=== PATIENT | female | born 1975 | race Caucasian/White ===

== ENCOUNTER 2017-06-16 20:18 | Inpatient (IN) | payer BC ==
[~2017-06-16] VITALS: Ht 167.6 cm; Wt 59.0 kg
[2017-06-16] MEDS ORDERED: MORPHINE SULFATE INJ 4 MG/ML DISP.SYRIN ONE ×2 (20:24→21:39)
[2017-06-16] MEDS ORDERED: ONDANSETRON HCL/PF 4 MG/2 ML VIAL ONE (20:24)
[2017-06-16] MEDS ORDERED: IV NS 0.9% 1,000 ML BAG IV ONE (20:30)
[2017-06-16] MEDS ORDERED: MORPHINE SULFATE INJ 2 MG/ML DISP.SYRIN IV ONE ×2 (20:30→22:00)
[2017-06-16] MEDS ORDERED: ONDANSETRON HCL/PF 4 MG/2 ML VIAL IVP ONE (20:30)
--- NOTE | 2017-06-16 20:30 | NUR ---
PT BIBA#99, PT STATES SHE STARTED HAVING OVERALL ABD PAIN X 1 HOUR PT DENIES ANY INJURY OR TRAUMA. PT AOX4 RR EVEN AND UNLABORED. NO SOB NOTED. NAD NOTED. PT GOWNED AND PLACED ON MONITOR. DR. STOCKTON AT BEDSIDE FOR EVAL.
[2017-06-16] MEDS ORDERED: HYDROMORPHONE 1 MG/1 ML DISP.SYRIN ONE ×3 (20:31→22:21)
[2017-06-16 20:32] LABS: BASOPHILS # (AUTO) 0.1 /CMM (0.0-0.2); BASOPHILS % (AUTO) 0.8 % (0.0-2.0); EOSINOPHILS # (AUTO) 0.5 /CMM (0.0-0.7); EOSINOPHILS % (AUTO) 4.8 % (0.0-6.0); HEMATOCRIT 35 % (33-45); HEMOGLOBIN 11.1 g/dL (11.5-14.8); LYMPHOCYTES # (AUTO) 3.8 /CMM (0.8-4.8); LYMPHOCYTES % (AUTO) 39.1 % (20.0-44.0); MEAN CORPUSCULAR HEMOGLOBIN 20 PG (26.0-33.0); MEAN CORPUSCULAR HGB CONC 32 g/dl (31.0-36.0); MEAN CORPUSCULAR VOLUME 63 fL (82-100); MONOCYTES # (AUTO) 0.8 /CMM (0.1-1.30); MONOCYTES % (AUTO) 8.5 % (2.0-12.0); NEUTROPHILS # (AUTO) 4.5 /CMM (1.8-8.9); NEUTROPHILS % (AUTO) 46.8 % (43.0-81.0); PLATELET COUNT (AUTO) 322 /CMM (150-450); RDW COEFFICIENT OF VARIATION 14.3 (11.5-15.0); RED BLOOD CELL COUNT(AUTO) 5.56 MIL/uL (4.0-5.2); WHITE BLOOD COUNT (AUTO) 9.7 K/uL (4.3-11.0)
[2017-06-16 20:42] LABS: CALCIUM, SERUM 8.4 mg/dL (8.5-10.1); CARBON DIOXIDE 18 mmol/L (21-32); CHLORIDE 101 mmol/L (98-107); CREATININE 0.9 mg/dL (0.6-1.3); GLUCOSE 160 mg/dL (74-106); POTASSIUM 2.9 mmol/L (3.5-5.1); SODIUM SERUM 134 mmol/L (136-145); UREA NITROGEN, BLOOD 9 mg/dL (7-18)
[2017-06-16 20:48] LABS: ALANINE AMINOTRANSFERASE 18 U/L (12-78); ALBUMIN 3.6 g/dL (3.4-5.0); ALKALINE PHOSPHATASE 41 U/L (46-116); ASPARTATE AMINOTRANSFERASE 18 U/L (15-37); BILIRUBIN,DIRECT 0.1 mg/dL (0.0-0.2); BILIRUBIN,TOTAL 0.6 mg/dL (0.2-1.0); LIPASE 154 U/L (73-393); TOTAL PROTEIN, SERUM 6.8 g/dL (6.4-8.2)
[2017-06-16 20:50] LABS: TROPONIN I < 0.017 ng/mL (0.00-0.056)
[2017-06-16 20:51] LABS: INR 0.94 (0.87-1.13); PROTHROMBIN TIME 9.8 SECS (9.5-12.7)
[2017-06-16] MEDS ORDERED: CT SWABBABLE VALVE TRANS SET 1 EA INFUS.SET MC ONE (20:52)
[2017-06-16] MEDS ORDERED: IV NS 0.9% 250 ML IV ONE (20:52)
[2017-06-16] MEDS ORDERED: IOHEXOL-300 100 ML VIAL IV ONE (20:52)
[2017-06-16] MEDS ORDERED: POTASSIUM CHLORIDE 10 MEQ/50 ML PREMIXED IVPB FOR PERIPHERAL LINE IV ONE (21:00)
[2017-06-16] MEDS ORDERED: HYDROMORPHONE INJ 2 MG/ML DISP.SYRIN IV ONE (21:00)
[2017-06-16] MEDS ORDERED: LORAZEPAM INJ 2 MG/ML VIAL IV ONE (21:00)
[2017-06-16] MEDS ORDERED: LORAZEPAM INJ 2 MG/ML VIAL ONE (21:03)
--- NOTE | 2017-06-16 21:08 | NUR ---
PT TO CT.
[2017-06-16] MEDS ORDERED: POTASSIUM CL. PREMIX PERIPHER. 50 ML ONE ×4 (21:13→22:26)
--- NOTE | 2017-06-16 21:23 | NUR ---
CALLED SHANKAR FOR READ ON CT ABDOMEN PELVIS
[2017-06-16 21:26] LABS: APPEARANCE,URINE Clear (CLEAR); BILIRUBIN,URINE Negative (NEGATIVE); BLOOD, URINE Negative Ery/uL (NEGATIVE); COLOR,URINE Yellow (YELLOW); KETONES,URINE 40 (NEGATIVE); LEUKOCYTE ESTERASE ,URINE Negative (NEGATIVE); NITRITE, URINE Negative (NEGATIVE); PROTEIN,URINE Negative (NEGATIVE); UGLUCOSE Negative (NEGATIVE); UROBILINOGEN,URINE 0.2 EU/dL (0.2)
--- NOTE | 2017-06-16 21:26 | NUR ---
KCL IVPB 10MEQ/50ML BAG #1 TRANSFUSING AT THIS TIME. PT TOLERATING WELL.
[2017-06-16] MEDS ORDERED: IV NS 0.9% 500 ML BAG IV ONE (21:30)
--- NOTE | 2017-06-16 21:31 | NUR ---
DR. STOCKTON AT BEDSIDE SPEAKING TO PT REGARDING POC
[2017-06-16 21:43] LABS: BACTERIA,URINE Few /HPF (None Seen); RBC,URINE 0-2 /HPF (0-2); SQUAMOUS EPITHELIAL CELL,UR Few /HPF (None Seen); URINE AMORPHOUS URATE Moderate /HPF (None Seen); WBC,URINE 0-2 /HPF (0-3)
--- NOTE | 2017-06-16 21:49 | NUR ---
DR. STOCKTON AT BEDSIDE SPEAKING TO PT AND FAMILY REGARDING POC AND RESULTS
--- NOTE | 2017-06-16 22:20 | NUR ---
KCL IVPB 10MEQ/50ML BAG #1 COMPLETED NO ASE NOTED. KCL IVPB 10MEQ/50ML BAG #2 TRANFUSING.
[2017-06-16] MEDS ORDERED: IV NS 0.9% 1,000 ML IV PRN (22:25)
[2017-06-16] MEDS ORDERED: HYDROMORPHONE 1 MG/1 ML DISP.SYRIN IV ONE (22:30)
[2017-06-16] MEDS ORDERED: HYDROCODONE/APAP 10/325MG 1 EA TABLET PO PRN (22:30)
[2017-06-16] MEDS ORDERED: ENOXAPARIN SODIUM 40 MG/0.4 ML DISP.SYRIN SQ SCH (22:30)
[2017-06-16] MEDS ORDERED: ONDANSETRON HCL/PF 4 MG/2 ML VIAL IVP PRN (22:30)
--- NOTE | 2017-06-16 22:30 | NUR ---
MS/RN NOTES RECEIVED PT. FROM ER VIA [facility]. PT. IS AWAKE, ALERT AND ORIENTED X4. BREATHING EVEN AND UNLABORED ON ROOM AIR. NO SOB OR RESPIRATORY DISTRESS NOTED AT THIS TIME. ORIENTED PT. TO ROOM. PT. COMPLAINING OF ABDOMINAL PAIN 05/06. PT. STATES IT HAS IMPROVED A LITTLE SINCE RECEIVING PAIN MEDICATION IN THE ER. PT. WITH RIGHT AC 18 GAUGE PERIPHERAL IV PRESENT, PATENT AND INTACT. PER ER PT. RECEIVED BAG 1 OF 4 OF 10MEQ KCL. TOTAL 40MEQ KCL ORDERED. WILL CONTINUE TO ADMINISTER TO PT. MEDICATION ORDERED. PT. WITH FAMILY PRESENT AT BEDSIDE. BED IN LOWEST POSITION, CALL LIGHT WITHIN REACH, WILL CONTINUE TO MONITOR.
--- NOTE | 2017-06-16 22:39 | NUR ---
IV POTASSIUM ENDORSED TO MEDICAL FLOOR.
--- NOTE | 2017-06-16 23:05 | NUR ---
MS/RN NOTES SURGEON DR. DIETRICH PRESENT AT PT. BEDSIDE. SPEAKING TO PT. AND PT. FAMILY.
--- NOTE | 2017-06-16 23:09 | NUR ---
MS/RN NOTES CALLED EPIC RADIO FREQUENCY ENGINEER LINDA HARTMANN TO CLARIFY ORDERS. PER LINDA HARTMANN OK TO HOLD LOVENOX MEDICATION IF PT. WILL BE GOING TO SURGERY. PER LINDA HARTMANN INSERT NG TUBE TO LOW INTERMITTENT SUCTION. NOTIFIED LINDA HARTMANN THAT PT. TAKES AMBIEN 10MG PO HS FOR SLEEP. PER LINDA HARTMANN NEW ORDER: ATIVAN 0.5 MG IVP PRN SLEEP WHILE NPO. WILL CARRY OUT ORDERS. WILL CONTINUE TO MONITOR.
[2017-06-16] MEDS ORDERED: HYDROMORPHONE 1 MG/1 ML DISP.SYRIN IV PRN (23:30)
[2017-06-16] MEDS ORDERED: LORAZEPAM INJ 2 MG/ML VIAL IV PRN (23:30)
[2017-06-16] MEDS ORDERED: CEFAZOLIN 1 GM ONE (23:35)
--- NOTE | 2017-06-16 23:35 | NUR ---
MS/RN NOTES DR. DIETRICH FINISHED SPEAKING WITH PT. AND PT. FAMILY. PER DR. DIETRICH PT. WILL BE GOING TO EMERGENCY SURGERY TONIGHT. PT. WILL BE GOING FOR DIAGNOSTIC LAPAROSCOPY, POSSIBLE LAPAROTOMY, POSSIBLE BOWEL RESECTION, POSSIBLE COLOSTOMY. HE WILL CALL NURSING ADDICTION PSYCHIATRIST TO GATHER SURGICAL TEAM. PER DR. DIETRICH NEW ORDER: PROCEDURE CONSENT FOR DIAGNOSTIC LAPAROSCOPY, POSSIBLE LAPAROTOMY, POSSIBLE BOWEL RESECTION, POSSIBLE COLOSTOMY. NEW ORDER: ZOSYN 3.375 G IVPB X1 NOW. ANCEF 1G TO BE GIVEN IN OR. CLARIFIED NG TUBE ORDER WITH DR. DIETRICH, PER MD DO NOT PLACE NG TUBE AT THIS TIME PT. WILL BE GOING FOR SURGERY AND IT WILL NEED TO BE REMOVED FOR ANESTHESIA. WILL CARRY OUT ORDERS. WILL CONTINUE TO MONITOR.
[2017-06-16] MEDS ORDERED: PIPERACILLIN /TAZOBACTAM 3.375 G VIAL IV ONE (23:36)
[2017-06-17] VITALS (9 sets, daily range): BP systolic 98–106; BP diastolic 60–73
[2017-06-17] MEDS ORDERED: CEFAZOLIN 1 GM in IV D5W 50 ML IV ONE ×2
--- NOTE | 2017-06-17 00:02 | NUR ---
MS/RN NOTES 10 MEQ KCL BAG 2 OF 4 ADMINISTERED TO PT. PT. TOLERATING WELL. WILL CONTINUE TO MONITOR.
--- NOTE | 2017-06-17 00:50 | NUR ---
MS/RN NOTES PT. IN STABLE CONDITION. PT. CONSENT FOR PROCEDURE, BLOOD AND ANESTHESIA SIGNED AND PLACED IN PT. CHART. PT. OR CHECKLIST COMPLETED AND PLACED IN CHART. ANCEF ANTIBIOTIC PROVIDED TO OR NURSE TO ADMINISTER IN OPERATING ROOM PER DR. DIETRICH ORDER. PT. LEFT THE FLOOR VIA HOSPITAL BED ACCOMPANIED BY OR NURSES AT 0050.
[2017-06-17] MEDS ORDERED: ROCURONIUM BROMIDE 50 MG/5 ML ONE (00:59)
[2017-06-17] MEDS ORDERED: MIDAZOLAM HCL 2 MG/2ML VIAL ONE (00:59)
[2017-06-17] MEDS ORDERED: FENTANYL PF 250MCG/5ML AMPUL ONE (00:59)
[2017-06-17] MEDS ORDERED: BUPIVACAINE MPF 0.5% W/EPI INJ 30 ML VIAL ONE (02:37)
--- NOTE | 2017-06-17 04:10 | NUR ---
MS/RN NOTES PT. RETURNED FROM PACU. PT. IS AWAKE, ALERT AND ORIENTED X4. BREATHING EVEN AND UNLABORED ON ROOM AIR. NO SOB, RESPIRATORY DISTRESS OR COMPLAINTS OF PAIN NOTED AT THIS TIME. PT. WITH LAWLER CATHETER PRESENT, PATENT AND INTACT DRAINING CLEAR YELLOW URINE. VITAL SIGNS STABLE. BP: 101/65 HR 68 02 97% RR 18, T: 98.[address] DIETRICH: VITAL SIGNS PER ROUTINE, IV LR @ 100ML/HR, ZOFRAN 4MG IV Q6H PRN N/V, CLEAR LIQUIDS IN THE MORNING, LAWLER CATHETER TO GRAVITY, ACTIVITY TOLERATED, NORCO 10-325 PO Q4H PRN PAIN, DILAUDID 2MG IV Q2H PRN SEVERE PAIN. ZOSYN 3.375 G IV TOMORROW AT NOON. WILL CARRY OUT ORDERS. BED IN LOWEST POSITION, CALL LIGHT WITHIN REACH, WILL CONTINUE TO MONITOR. Addendum: 06/17/17 at 0525 by OSCAR REID RN PER OR NURSE PROCEDURE WENT WELL. PT. HAD EX LAP UNDER GENERAL ANESTHESIA AND A CECUM RESECTION DONE. PT. NOW HAS ABDOMINAL INCISION WITH SURGICAL DRESSING PRESENT, INTACT AND IN PLACE WITH SCANT DRAINAGE NOTED ON DRESSING. 1900 ML LR GIVEN IN OR.
--- NOTE | 2017-06-17 04:15 | NUR ---
MS/RN NOTES 10 MEQ KCL BAG 3 OF 4 ADMINISTERED TO PT. PT. TOLERATING WELL. WILL CONTINUE TO MONITOR.
[2017-06-17] MEDS ORDERED: ONDANSETRON HCL/PF 4 MG/2 ML VIAL ONE (04:23)
[2017-06-17] MEDS: ONDANSETRON HCL/PF 4 MG/2 ML VIAL IV PRN ×2 (04:30→11:38)
[2017-06-17] MEDS ORDERED: HYDROMORPHONE INJ 2 MG/ML DISP.SYRIN IV PRN ×2 (04:30→12:30)
[2017-06-17] MEDS: IV LR 1000 ML 1,000 ML IV PRN ×2 (04:47→19:14)
--- NOTE | 2017-06-17 05:20 | NUR ---
MS/RN NOTES 10 MEQ KCL BAG 4 OF 4 ADMINISTERED TO PT. PT. TOLERATING WELL. WILL CONTINUE TO MONITOR.
[2017-06-17] MEDS ORDERED: HYDROMORPHONE 1 MG/1 ML DISP.SYRIN ONE (05:57)
--- NOTE | 2017-06-17 06:55 | NUR ---
MS/RN NOTES PT. IS AWAKE, ALERT AND ORIENTED X4. BREATHING EVEN AND UNLABORED ON ROOM AIR. NO SOB OR RESPIRATORY DISTRESS NOTED. PT. COMPLAINING OF PAIN IN HER ABDOMEN. WILL ADMINISTER TO PT. PAIN MEDICATION ORDERED. PT. WITH RIGHT AC 18 GAUGE PERIPHERAL IV PRESENT, PATENT AND INTACT ADMINISTERING TO PT. LR @ 100 ML/HR. PT. WITH LAWLER CATHETER PRESENT, PATENT AND INTACT DRAINING CLEAR YELLOW URINE. VITAL SIGNS STABLE. PT. PRESENT AT BEDSIDE. BED IN LOWEST POSITION, CALL LIGHT WITHIN REACH, WILL ENDORSE TO DAYSHIFT NURSE FOR CONTINUITY OF CARE.
[2017-06-17 06:57] LABS: HEMATOCRIT 31 % (33-45); HEMOGLOBIN 10.2 g/dL (11.5-14.8); LYMPHOCYTES # (AUTO) 0.4 /CMM (0.8-4.8); LYMPHOCYTES % (AUTO) 3.5 % (20.0-44.0); MEAN CORPUSCULAR HEMOGLOBIN 21 PG (26.0-33.0); MEAN CORPUSCULAR HGB CONC 33 g/dl (31.0-36.0); MEAN CORPUSCULAR VOLUME 63 fL (82-100); MONOCYTES # (AUTO) 0.4 /CMM (0.1-1.30); MONOCYTES % (AUTO) 2.9 % (2.0-12.0); NEUTROPHILS # (AUTO) 11.6 /CMM (1.8-8.9); NEUTROPHILS % (AUTO) 93.6 % (43.0-81.0); PLATELET COUNT (AUTO) 248 /CMM (150-450); RDW COEFFICIENT OF VARIATION 14.8 (11.5-15.0); RED BLOOD CELL COUNT(AUTO) 4.95 MIL/uL (4.0-5.2); WHITE BLOOD COUNT (AUTO) 12.4 K/uL (4.3-11.0)
--- NOTE | 2017-06-17 07:30 | NUR ---
Initial Med Surg Notes: Received patient resting in bed. Non-labored breathing noted. No shortness of breath. Patient stable. IV on Right AC patent and intact. Lactated Ringers infusing at 100 ml/hour. Light yellow urine draining in mondragon catheter. Bed at lowest position. Call light within reach. Will continue to monitor. Addendum: 06/17/17 at 0758 by QUINN SANDOVAL RN Patient alert oriented x 4.
[2017-06-17 07:37] LABS: CALCIUM, SERUM 7.2 mg/dL (8.5-10.1); CREATININE 0.6 mg/dL (0.6-1.3); MAGNESIUM 1.4 mg/dL (1.8-2.4); PHOSPHORUS 3.2 mg/dL (2.5-4.9); POTASSIUM 4.1 mmol/L (3.5-5.1)
[2017-06-17 08:18] LABS: BAND % (MANUAL) 5 % (0.0-5.0); LYMPHOCYTES % (MANUAL) 2 % (16-48); MONOCYTES % (MANUAL) 3 % (0-11.0); NEUTROPHILS % (MANUAL) 90 (42-76)
[2017-06-17] MEDS ORDERED: ENOXAPARIN SODIUM 40 MG/0.4 ML DISP.SYRIN SQ SCH (08:48)
[2017-06-17] MEDS: ENOXAPARIN SODIUM 40 MG/0.4 ML DISP.SYRIN SQ SCH (09:52)
[2017-06-17] MEDS: Magnesium 1GM/D5W 100ML PREMIX 100 ML IV SCH ×4 (10:14→14:43)
--- NOTE | 2017-06-17 11:44 | NUR ---
ms RN notes Dr. Singh came seen and examined the patient and spoke to the sister in regards with her questions and informed regarding patient blood pressure drop after dilaudid 2 mg administration and per MD to decrease it to 1mg IVP Q2hrs. All orders carried out and noted. Will continue to monitor accordingly.
[2017-06-17] MEDS ORDERED: PIPERACILLIN /TAZOBACTAM 3.375 G in IV D5W 50 ML IV ONE ×3 (12:00)
[2017-06-17] MEDS ORDERED: ZOSYN IVPB 3.375 G in IV D5W 50ml IV SCH ×2 (13:00→18:00)
[2017-06-17] MEDS: SIMETHICONE 80 MG TAB.CHEW PO PRN (13:32)
[2017-06-17] MEDS: HYDROCODONE/APAP 10/325MG 1 EA TABLET PO PRN ×2 (13:32→18:33)
[2017-06-17] MEDS: MORPHINE SULFATE INJ 2 MG/ML DISP.SYRIN IV PRN ×2 (15:34→22:00)
--- NOTE | 2017-06-17 18:18 | NUR ---
ms rn notes Dr. arriaza called regarding patient and ordered to D/C mondragon catheter, zosyn IV ATB, and change LR to 50 ml/hr. D/C zofran and change it to reglan 10 mg 1 tab PO Q8hrs PRN. PT eval. Protonix 40 mg 1 tab PO Qacbf. All orders carried out and noted. Will continue to monitor accordingly.
[2017-06-17] MEDS ORDERED: METOCLOPRAMIDE HCL 10 MG TABLET PO PRN (18:30)
[2017-06-17] MEDS: FAMOTIDINE/PF INJ 20 MG/2 ML VIAL IV SCH (18:35)
--- NOTE | 2017-06-17 19:30 | NUR ---
MS rn closing notes All needs provided, attended, and anticipated, kept patient clean and comfortable in bed, call light with in patient reach, endorsed to next shift RN to continue care.
--- NOTE | 2017-06-17 19:35 | NUR ---
MS/RN NOTES RECEIVED PT. LYING IN BED. AWAKE, ALERT AND ORIENTED X4. BREATHING EVEN AND UNLABORED ON ROOM AIR. NO SOB OR RESPIRATORY DISTRESS OR COMPLAINTS OF PAIN NOTED AT THIS TIME. NO COMPLAINTS OF NAUSEA OR VOMITING AT THIS TIME. PT. WITH RIGHT AC 18 GAUGE PERIPHERAL IV PRESENT, PATENT AND INTACT ADMINISTERING TO PT. LR @ 50 ML/HR. PT. WITH RIGHT HAND 22 GAUGE IV SALINE LOCK PRESENT, PATENT AND INTACT. PER DAYSHIFT NURSE LAWLER CATHETER WAS REMOVED AT 1850 PT. VOIDED 1700 ML DURING SHIFT. PT. WITH FAMILY MEMBER PRESENT AT BEDSIDE. BED IN LOWEST POSITION, CALL LIGHT WITHIN REACH, WILL CONTINUE TO MONITOR.
--- NOTE | 2017-06-17 19:37 | NUR ---
ms rn notes Paged Dr. Singh in regards with patient WBC 12.4 and left a message and endorsed to next shift RN if MD to continue IV ATB or D/C.
--- NOTE | 2017-06-17 19:40 | NUR ---
ms rn notes Dr. Singh called back and made aware and per MD to keep IV ATB D/C and will check the lab result in the morning. All orders carried out and noted. Will continue to monitor accordingly
[2017-06-18] MEDS: HYDROCODONE/APAP 10/325MG 1 EA TABLET PO PRN (00:35)
--- NOTE | 2017-06-18 00:38 | NUR ---
MS RN NOTE: PATIENT COMPLAINS OF PAIN 7/10 TO ABDOMEN, NORCO 10/325MG 1 TAB PO GIVEN PER MD ORDER. WILL CONTINUE TO MONITOR.
--- NOTE | 2017-06-18 00:50 | NUR ---
MS/RN NOTES PT. IS REFUSING IV FLUIDS AT THIS TIME, PT. STATES "IM DRINKING ENOUGH WATER AND I DON'T WANT TO KEEP HAVING TO GO TO THE BATHROOM ALL NIGHT. I CAN START IT AGAIN IN THE MORNING WHEN IM AWAKE. I WANT TO SLEEP". WILL CONTINUE TO MONITOR.
[2017-06-18] MEDS ORDERED: ZOLP10TA2 PO (00:59)
--- NOTE | 2017-06-18 01:03 | NUR ---
MS/RN NOTES NOTIFIED EPIC PROBLEM MANAGER LINDA HARTMANN PT. IS REQUESTING AMBIEN 10MG PRN SLEEP. PT. TAKES THAT MEDICATION AT HOME EVERY NIGHT FOR SLEEP. PER LINDA HARTMANN NEW ORDER: AMBIEN 10MG PO HS PRN SLEEP. WILL CARRY OUT ORDERS. WILL CONTINUE TO MONITOR.
[2017-06-18] MEDS ORDERED: ZOLPIDEM TARTRATE 10 MG TABLET ONE (01:24)
[2017-06-18] MEDS: ZOLPIDEM TARTRATE 10 MG TABLET PO PRN ×2 (01:36→22:19)
--- NOTE | 2017-06-18 06:17 | NUR ---
MS/RN NOTES PT. IS LYING IN BED RESTING. BREATHING EVEN AND UNLABORED ON ROOM AIR. NO SOB OR RESPIRATORY DISTRESS OR COMPLAINTS OF PAIN NOTED AT THIS TIME. NO COMPLAINTS OF NAUSEA OR VOMITING AT THIS TIME. PT. WITH RIGHT AC 18 GAUGE PERIPHERAL IV PRESENT, PATENT AND INTACT. PT. WITH RIGHT HAND 22 GAUGE IV SALINE LOCK PRESENT, PATENT AND INTACT. PT. WITH ABDOMINAL POST OP SURGICAL INCISION SITE PRESENT. SURGICAL DRESSING IS PRESENT AND INTACT. SCANT DRAINAGE NOTED ON DRESSING. PT. FATHER PRESENT AT BEDSIDE. ALL PT. NEEDS MET. BED IN LOWEST POSITION, CALL LIGHT WITHIN REACH, WILL ENDORSE TO DAYSHIFT NURSE FOR CONTINUITY OF CARE.
--- NOTE | 2017-06-18 07:25 | NUR ---
AM RN NOTE Received patient sleeping comfortably in her bed, no acute distress noted. Resp even and non-labored. IV site intact and patent. Bed in low locked position. Father at bedside, ct tech came in to draw blood. Father notified RN that pt went o sleep around 2:30 am this morning and requested clinical lab specialist to came back to draw blood. Will continue to monitor. Call light with in reach.
[2017-06-18 08:00] VITALS: BP 107/69
--- NOTE | 2017-06-18 08:03 | NUR ---
AM RN NOTE Patient seen and assessed by Dr. De La Torre with new orders noted and carried out.
[2017-06-18] MEDS: FAMOTIDINE/PF INJ 20 MG/2 ML VIAL IV SCH (08:32)
[2017-06-18] MEDS: ENOXAPARIN SODIUM 40 MG/0.4 ML DISP.SYRIN SQ SCH (08:47)
[2017-06-18] MEDS ORDERED: GABAPENTIN 300 MG CAPSULE PO SCH (09:00)
[2017-06-18] MEDS ORDERED: IBUPROFEN 400 MG TABLET PO SCH (09:00)
[2017-06-18] MEDS ORDERED: ACETAMINOPHEN 325 MG TABLET PO SCH (09:00)
[2017-06-18] MEDS: MORPHINE SULFATE INJ 2 MG/ML DISP.SYRIN IV PRN ×2 (10:39→20:42)
[2017-06-18] MEDS: ACETAMINOPHEN 325 MG TABLET PO SCH ×2 (14:58→20:40)
[2017-06-18] MEDS: IBUPROFEN 400 MG TABLET PO SCH ×2 (14:59→20:40)
[2017-06-18] MEDS: GABAPENTIN 300 MG CAPSULE PO SCH ×2 (14:59→20:40)
[2017-06-18 15:18] LABS: BASOPHILS % (AUTO) 0.1 % (0.0-2.0); EOSINOPHILS # (AUTO) 0.1 /CMM (0.0-0.7); EOSINOPHILS % (AUTO) 0.7 % (0.0-6.0); HEMATOCRIT 28 % (33-45); LYMPHOCYTES # (AUTO) 1.4 /CMM (0.8-4.8); LYMPHOCYTES % (AUTO) 16.9 % (20.0-44.0); MEAN CORPUSCULAR HEMOGLOBIN 20 PG (26.0-33.0); MEAN CORPUSCULAR HGB CONC 32 g/dl (31.0-36.0); MEAN CORPUSCULAR VOLUME 63 fL (82-100); MONOCYTES # (AUTO) 0.7 /CMM (0.1-1.30); MONOCYTES % (AUTO) 8.8 % (2.0-12.0); NEUTROPHILS # (AUTO) 5.9 /CMM (1.8-8.9); NEUTROPHILS % (AUTO) 73.5 % (43.0-81.0); PLATELET COUNT (AUTO) 219 /CMM (150-450); RDW COEFFICIENT OF VARIATION 14.9 (11.5-15.0); RED BLOOD CELL COUNT(AUTO) 4.47 MIL/uL (4.0-5.2)
[2017-06-18 15:38] LABS: CALCIUM, SERUM 7.5 mg/dL (8.5-10.1); CREATININE 0.7 mg/dL (0.6-1.3); POTASSIUM 3.7 mmol/L (3.5-5.1)
[2017-06-18 15:39] LABS: MAGNESIUM 1.8 mg/dL (1.8-2.4); PHOSPHORUS 2.2 mg/dL (2.5-4.9)
[2017-06-18 15:41] LABS: IRON, SERUM 14 ug/dl (50-175); TOTAL IRON BINDING CAPACITY 266 ug/dl (250-450)
[2017-06-18 16:00] VITALS: BP 96/64
[2017-06-18 16:14] LABS: FERRITIN 74 ng/mL (8-388)
--- NOTE | 2017-06-18 18:05 | NUR ---
AM RN NOTE Patient resting in her bed, family at bedside. No acute distress noted. Continue on routine and PRN pain meds with help. Pt refused IV fluids at this time, stated that she drinks enough. Will continue to monitor and endorse care to next shift.
--- NOTE | 2017-06-18 19:35 | NUR ---
RN OPENING NOTES RECEIVED REPORT FROM NARCISO NOVA RN. FOUND Pt AWAKE, RESTING IN BED. FRIEND VISITING AT BEDSIDE. Pt IS A/OX4, VERBAL, ABLE TO MAKE NEEDS KNOWN. IV ACCESS RAC #18G & R HAND #22G WITH LR @50ML/HR. NO S/S OF ACUTE DISTRESS OR SOB NOTED. SAFETY MEASURES IN PLACE. BED LOW, LOCKED, HOB ELEVATED, SIDE RAILS UP, CALL LIGHT AND BEDSIDE TABLE WITHIN REACH. WILL CONTINUE TO MONITOR Pt THROUGHOUT THE NIGHT FOR SAFETY.
[2017-06-18 20:00] VITALS: BP 104/65
[2017-06-18 20:07] VITALS: BP 104/65
[2017-06-19] MEDS: IBUPROFEN 400 MG TABLET PO SCH ×3 (05:04→21:31)
[2017-06-19] MEDS: ACETAMINOPHEN 325 MG TABLET PO SCH ×3 (05:04→21:31)
[2017-06-19] MEDS: GABAPENTIN 300 MG CAPSULE PO SCH ×3 (05:04→21:31)
--- NOTE | 2017-06-19 05:15 | NUR ---
RN NOTES MORPHINE 2MG WAS OUT OF STOCK IN BOTH OMNICELL. HAD TO OVERRIDE MED WITH SALESPERSON MEATS, GILL AND TAKE OUT MORPHINE 4MG AND WASTE 2MG.
[2017-06-19] MEDS ORDERED: MORPHINE SULFATE INJ 4 MG/ML DISP.SYRIN ONE (05:22)
[2017-06-19] MEDS: MORPHINE SULFATE INJ 2 MG/ML DISP.SYRIN IV PRN ×2 (05:24→15:35)
--- NOTE | 2017-06-19 06:55 | NUR ---
RN CLOSING NOTES NO SIGNIFICANT CHANGES IN Pt's CONDITION. Pt STABLE AT THIS TIME. NO S/S OF ACUTE DISTRESS OR SOB NOTED DURING THE NIGHT. ALL NEEDS MET AND ATTENDED TO. SAFETY MEASURES IN PLACE. WILL ENDORSE TO DAYSHIFT RN FOR Pt's PEDRO.
--- NOTE | 2017-06-19 07:24 | NUR ---
AM RN NOTE Received patient awake, A/O X4. Verbally responsive. No SOB noted resp even and non-labored. Pt verbalized that routine and PRN pain meds effective for pain management. IV site intact and patent. Bed in low locked position. Father at bedside. Will continue to monitor.
[2017-06-19 07:33] LABS: BASOPHILS % (AUTO) 0.5 % (0.0-2.0); EOSINOPHILS # (AUTO) 0.1 /CMM (0.0-0.7); HEMATOCRIT 27 % (33-45); HEMOGLOBIN 8.9 g/dL (11.5-14.8); LYMPHOCYTES # (AUTO) 0.8 /CMM (0.8-4.8); LYMPHOCYTES % (AUTO) 8.3 % (20.0-44.0); MEAN CORPUSCULAR HEMOGLOBIN 21 PG (26.0-33.0); MEAN CORPUSCULAR HGB CONC 32 g/dl (31.0-36.0); MEAN CORPUSCULAR VOLUME 63 fL (82-100); MONOCYTES # (AUTO) 0.5 /CMM (0.1-1.30); MONOCYTES % (AUTO) 5.9 % (2.0-12.0); NEUTROPHILS # (AUTO) 7.7 /CMM (1.8-8.9); NEUTROPHILS % (AUTO) 84.3 % (43.0-81.0); PLATELET COUNT (AUTO) 221 /CMM (150-450); RDW COEFFICIENT OF VARIATION 14.8 (11.5-15.0); RED BLOOD CELL COUNT(AUTO) 4.34 MIL/uL (4.0-5.2); WHITE BLOOD COUNT (AUTO) 9.1 K/uL (4.3-11.0)
[2017-06-19 07:57] LABS: CALCIUM, SERUM 7.3 mg/dL (8.5-10.1); CREATININE 0.7 mg/dL (0.6-1.3); POTASSIUM 3.6 mmol/L (3.5-5.1)
[2017-06-19 08:00] VITALS: BP 115/73
[2017-06-19 08:32] LABS: BAND % (MANUAL) 2 % (0.0-5.0); EOSINOPHILS % (MANUAL) 1 % (0-4); LYMPHOCYTES % (MANUAL) 10 % (16-48); MONOCYTES % (MANUAL) 6 % (0-11.0); NEUTROPHILS % (MANUAL) 81 (42-76)
[2017-06-19] MEDS: FAMOTIDINE/PF INJ 20 MG/2 ML VIAL IV SCH (08:37)
[2017-06-19] MEDS: ENOXAPARIN SODIUM 40 MG/0.4 ML DISP.SYRIN SQ SCH (08:38)
--- NOTE | 2017-06-19 12:02 | NUR ---
AM RN NOTE New diet order noted and carried out.
[2017-06-19 16:00] VITALS: BP 104/69
[2017-06-19] MEDS: DOCUSATE SODIUM 100 MG CAPSULE PO SCH (16:17)
--- NOTE | 2017-06-19 18:37 | NUR ---
AM RN NOTE Patient ambulating in her room as accompanied by family member at bedside. Pain meds effective per patient. IV site intact and patent. Pt refusing IV fluids, stated she is drinking enough water. Niles MCKEON made aware with NNO. Will continue to monitor and endorse care to next shift. Dressing on post-op incision, intact.
--- NOTE | 2017-06-19 19:35 | NUR ---
MS/RN OPENING NOTES PT AWAKE, SITTING UP IN BED. A/OX4, ON RA BREATHING EVEN AND UNLABORED. NOTES PAIN TO BE 4-5/10 TO ABDOMEN. WOULD LIKE PAIN MEDICATION LATER THIS TONIGHT. DRESSING TO ABDOMEN INTACT. IV TO RIGHT HAND PATENT AND INTACT. BED IN LOW/LOCKED POSITION, CALL LIGHT IN REACH. SIDE RAILS UPX2. WILL CONTINUE TO MONITOR
[2017-06-19 20:00] VITALS: BP 102/66
[2017-06-19 20:30] VITALS: BP 112/71
--- NOTE | 2017-06-19 20:30 | NUR ---
MS/RN NOTES DR. DIETRICH CALLED TO FOLLOW UP WITH PT'S CONDITION. NOTIFIED HIM THAT PT VERBALIZED INABILITY TO PASS GAS AND HAS NOT HAD A BM YET. PT ON COLACE. NO NEW ORDERS AT THIS TIME.
[2017-06-19] MEDS: SIMETHICONE 80 MG TAB.CHEW PO PRN (21:31)
--- NOTE | 2017-06-19 21:40 | NUR ---
MS/RN NOTES PT COMPLAINING OF BLOATING AND GAS ACCUMULATION WHICH SHE IS UNABLE TO EXPEL. ADMINISTERED PRN SIMETHICONE.
--- NOTE | 2017-06-19 22:00 | NUR ---
MS/RN NOTES PT AMBULATING IN ROOM PERFORMING PM CARE. HAS STEADY GAIT. ENCOURAGED INCREASE IN AMBULATION
[2017-06-19] MEDS: ZOLPIDEM TARTRATE 10 MG TABLET PO PRN (23:02)
[2017-06-20] MEDS: GABAPENTIN 300 MG CAPSULE PO SCH ×3 (05:56→21:37)
[2017-06-20] MEDS: ACETAMINOPHEN 325 MG TABLET PO SCH ×3 (05:56→21:37)
[2017-06-20] MEDS: IBUPROFEN 400 MG TABLET PO SCH ×3 (05:56→21:37)
[2017-06-20] MEDS: MORPHINE SULFATE INJ 2 MG/ML DISP.SYRIN IV PRN (07:25)
--- NOTE | 2017-06-20 07:42 | NUR ---
MS/RN OPENING NOTE RECEIVED PATIENT IN BED IN STABLE CONDITION. NO ACUTE DISTRESS. COMPLAIN OF PAIN. MORPHINE IV GIVEN AT 0726 BY KNITTED CLOTH EXAMINER. TOLERATING WELL. ALL NEEDS ATTENDED TO AT THIS TIME. CALL LIGHT WITHIN REACH. WILL CONTINUE TO MONITOR TO ENSURE SAFETY. Addendum: 06/20/17 at 0750 by DEBORAH HAIRSTON RN ALERT AND ORIENTED TIMES 4. AMBULATORY TO BATHROOM WITH ASSIST.
[2017-06-20 07:47] LABS: BASOPHILS # (AUTO) 0.1 /CMM (0.0-0.2); EOSINOPHILS # (AUTO) 0.2 /CMM (0.0-0.7); HEMATOCRIT 29 % (33-45); HEMOGLOBIN 9.4 g/dL (11.5-14.8); LYMPHOCYTES % (AUTO) 19.3 % (20.0-44.0); MEAN CORPUSCULAR HEMOGLOBIN 20 PG (26.0-33.0); MEAN CORPUSCULAR HGB CONC 33 g/dl (31.0-36.0); MEAN CORPUSCULAR VOLUME 62 fL (82-100); MONOCYTES # (AUTO) 0.4 /CMM (0.1-1.30); MONOCYTES % (AUTO) 6.9 % (2.0-12.0); NEUTROPHILS # (AUTO) 3.6 /CMM (1.8-8.9); NEUTROPHILS % (AUTO) 68.8 % (43.0-81.0); PLATELET COUNT (AUTO) 257 /CMM (150-450); RDW COEFFICIENT OF VARIATION 14.9 (11.5-15.0); RED BLOOD CELL COUNT(AUTO) 4.63 MIL/uL (4.0-5.2); WHITE BLOOD COUNT (AUTO) 5.2 K/uL (4.3-11.0)
--- NOTE | 2017-06-20 07:55 | NUR ---
MS/RN CLOSING NOTES PT AWAKE, RESTING COMFORTABLY IN BED. REMAINS ON RA, BREATHING EVEN AND UNLABORED. DENIES SOB, NO S/S OF DISTRESS NOTED. ADMINISTERED PRN MORPHINE FOR ABDOMINAL PAIN 06/06. DR. DIETRICH CALLED FOR FOLLOW UP AT 0700, INFORMED ME THAT PT WILL EXPERIENCE SEVERE ABDOMINAL PAIN/SPASM 12 HOURS PRIOR TO HAVING A BM, WHICH IS NORMAL. EDUCATED PT ON THIS AND VERBALIZED UNDERSTANDING. PT STATED THAT PRN SIMETHICONE SEEMED TO HELP A LITTLE BIT. IV TO RIGHT HAND PATENT AND INTACT. MADE PT COMFORTABLE THROUGHOUT SHIFT. ALL NEEDS MET AND ATTENDED. BED IN LOW/LOCKED POSITION WITH CALL LIGHT IN REACH. SIDE RAILS UPX2. ENDORSED TO AM SHIFT PEDRO.
[2017-06-20 08:00] VITALS: BP 126/76
[2017-06-20 08:01] LABS: CREATININE 0.6 mg/dL (0.6-1.3); POTASSIUM 3.9 mmol/L (3.5-5.1)
[2017-06-20] MEDS: DOCUSATE SODIUM 100 MG CAPSULE PO SCH ×2 (08:51→16:23)
[2017-06-20] MEDS: FAMOTIDINE/PF INJ 20 MG/2 ML VIAL IV SCH (08:51)
[2017-06-20] MEDS: ENOXAPARIN SODIUM 40 MG/0.4 ML DISP.SYRIN SQ SCH (09:53)
[2017-06-20 11:19] VITALS: BP 126/76
--- NOTE | 2017-06-20 13:00 | NUR ---
MS/RN SEEN BY NIA STALLINGS PATIENT SEEN BY LINDA KRAMER WITH NEW ORDER TO DISCONTINUE LR @ 50 CC/HR. ALSO TO UPGRADE DIET FROM SOFT TO REGULAR.
[2017-06-20 16:00] VITALS: BP 117/85
--- NOTE | 2017-06-20 18:10 | NUR ---
MS/RN CLOSING NOTE PATIENT IN BED IN STABLE CONDITION. ALERT AND ORIENTED TIMES 4. NO SIGNS OF ACUTE DISTRESS. NO COMPLAIN OF PAIN AND DISCOMFORT. PER PATIENT, SHE HAD A REALLY SMALL BOWEL MOMENT. AWAITING FOR PATIENT TO HAVE LARGE BM. WILL ENDORSE TO NEXT SHIFT FOR CONTINUITY OF CARE.
--- NOTE | 2017-06-20 19:20 | NUR ---
MS/RN OPENING NOTES PT AWAKE, A/OX4. ON RA. BREATHING EVEN AND UNLABORED. FAMILY AT BEDSIDE. DENIES SOB AND PAIN AT THIS TIME. NO S/S OF DISTRESS. IV TO RIGHT HAND PATENT AND INTACT. BED IN LOW/LOCKED POSITION WITH CALL LIGHT IN REACH. SIDE RAILS UPX2. WILL CONTINUE TO MONITOR
[2017-06-20 20:00] VITALS: BP 111/75
[2017-06-20] MEDS: ZOLPIDEM TARTRATE 10 MG TABLET PO PRN (22:13)
--- NOTE | 2017-06-20 22:16 | NUR ---
MS/RN NOTES PT REQUESTING AMBIEN FOR SLEEP. ADMINISTERED PRN AMBIEN. WILL MONITOR FOR EFFECTIVENESS. ALL OTHER NEEDS MET AT THIS TIME.
[2017-06-21] MEDS ORDERED: MORPHINE SULFATE INJ 2 MG/ML DISP.SYRIN ONE (04:55)
[2017-06-21] MEDS: MORPHINE SULFATE INJ 2 MG/ML DISP.SYRIN IV PRN (05:07)
[2017-06-21] MEDS: IBUPROFEN 400 MG TABLET PO SCH (06:10)
[2017-06-21] MEDS: GABAPENTIN 300 MG CAPSULE PO SCH (06:10)
[2017-06-21] MEDS: ACETAMINOPHEN 325 MG TABLET PO SCH (06:11)
--- NOTE | 2017-06-21 07:30 | NUR ---
RN MS NOTES PT IN BED, AWAKE, ALERT AND ORIENTED, NO COMPLAINT OF PAIN AT THIS TIME, RESPIRATIONS NORMAL AND NOT LABORED, NO BOWEL MOVEMENT YET BUT PASSING GAS, CALL LIGHT WITHIN REACH, NEEDS ATTENDED.
--- NOTE | 2017-06-21 07:30 | NUR ---
MS/RN CLOSING NOTES PT AWAKE, FAMILY MEMBER AT BEDSIDE. ON RA, BREATHING EVEN AND UNLABORED. NO S/S OF DISTRESS NOTED. PAIN NOTED TO BE 5/10 POST MORPHINE ADMINISTRATION TO ABDOMEN. IV TO RIGHT HAND PATENT AND INTACT. ENCOURAGED PT TO AMBULATE. PT HAD NO BM BUT STATES SHE IS PASSING GAS. ANTICIPATING DC HOME WHEN PT HAS A LARGE BM. PT VERBALIZES UNDERSTANDING. BED IN LOW/LOCKED POSITION WITH CALL LIGHT IN REACH. SIDE RAILS UPX2. ENDORSED TO AM SHIFT PEDRO.
[2017-06-21 08:00] VITALS: BP 112/72
[2017-06-21] MEDS: FAMOTIDINE/PF INJ 20 MG/2 ML VIAL IV SCH (08:09)
[2017-06-21] MEDS: DOCUSATE SODIUM 100 MG CAPSULE PO SCH (08:09)
[2017-06-21 08:17] LABS: CALCIUM, SERUM 8.1 mg/dL (8.5-10.1); CREATININE 0.7 mg/dL (0.6-1.3); POTASSIUM 3.9 mmol/L (3.5-5.1)
[2017-06-21] MEDS: ENOXAPARIN SODIUM 40 MG/0.4 ML DISP.SYRIN SQ SCH (08:18)
--- NOTE | 2017-06-21 12:30 | NUR ---
RN MS NOTES PT IN BED, AWAKE, ALERT AND ORIENTED, ABLE TO AMBULATE TO THE BATHROOM WITH STEADY GAIT, PT SEEN BY DR. DIETRICH, CLEARANCE GIVEN FOR DISCHARGE, ALSO SEEN BY NIA MCKEON, DISCHARGE ORDER GIVEN, DISCHARGE AND MEDICATION INSTRUCTIONS PROVIDED TO PT, VERBALIZED UNDERSTANDING, DRESSING TO ABDOMINAL INCISION SITE INTACT AND DRY, MD TO REMOVE DRESSING DURING HER F/UP APPOINTMENT, BELONGINGS ACCOUNTED FOR, PRESCRIPTION GIVEN TO PT, PT REQUESTED FOR A TEMPORARY DISABLED LICENSE PLATES, DMV FORM OBTAINED FROM ANNE LEASE EXAMINER, FORMED SIGNED BY NIA MCKEON, PICKED UP BY FAMILY MEMBERS, PT LEFT IN STABLE CONDITION.
== END 2017-06-21 12:30 | disposition home or self-care (01) | DRG 330 ==
LOC: ER 20:20 → MED 22:15
PROVIDERS: ADMIT Nurse Practitioner Acute Care; ATTEND Nurse Practitioner Acute Care
PROC: 0DTB4ZZ Resection of Ileum, Percutaneous Endoscopic Approach (ICD-10-PCS; principal; 2017-06-17 01:00)
PROC: 0DTH4ZZ Resection of Cecum, Percutaneous Endoscopic Approach (ICD-10-PCS; 2017-06-17 01:00)
DX: K56.2 Volvulus (principal); E87.1 Hypo-osmolality and hyponatremia; K50.90 Crohn's disease, unspecified, without complications; D64.9 Anemia, unspecified; D72.829 Elevated white blood cell count, unspecified; D50.9 Iron deficiency anemia, unspecified; E87.6 Hypokalemia
CPT/HCPCS: 36415; 80048-TC; 80076-TC; 81000-TC; 82728-TC; 83540-TC; 83690-TC; 83735-TC; 84100-TC; 84484-TC; 84703-TC; 85025-TC; 85730-TC; 86850-TC; 87081-TC; 88305-TC; 88307-TC; A4606; A6209; A6253; A6402; J0690; J1100; J1170; J1650; J2060; J2250; J2270; J2405; J2543; J2704; J2710; J3010; J3475; J3480; J3490; J7030; J7040; J7050; J7060; J7120; J8597; Q9967; Z7610

== ENCOUNTER 2017-07-09 11:23 | Inpatient (IN) | payer BC ==
[~2017-07-09] VITALS: Ht 160 cm; Wt 51.3 kg
[~2017-07-09 11:23] MED LIST: ZOLP10TA2 PO
--- NOTE | 2017-07-09 11:25 | NUR ---
PT AMBULATORY TO ER BED 14 C/O DIFFUSE ABDOMINAL PAIN WORST TO LUQ. UNDERGO ILEOCECAL RESECTION 2 WEEKS AGO. GOWNED AND PLACED ON MONITOR. STABLE VITALS. AWAITING MD MEANS.
--- NOTE | 2017-07-09 11:50 | NUR ---
DR WHITE AT BEDSIDE FOR EVAL.
[2017-07-09 12:00] LABS: APPEARANCE,URINE Clear (CLEAR); BILIRUBIN,URINE Negative (NEGATIVE); BLOOD, URINE Negative Ery/uL (NEGATIVE); COLOR,URINE Yellow (YELLOW); KETONES,URINE Negative (NEGATIVE); LEUKOCYTE ESTERASE ,URINE Negative (NEGATIVE); NITRITE, URINE Negative (NEGATIVE); PROTEIN,URINE Negative (NEGATIVE); UGLUCOSE Negative (NEGATIVE); UROBILINOGEN,URINE 0.2 EU/dL (0.2)
--- NOTE | 2017-07-09 12:08 | NUR ---
IV LINE STARTED. BLOOD DRAWN AND SENT TO LAB.
[2017-07-09 12:12] LABS: BASOPHILS # (AUTO) 0.2 /CMM (0.0-0.2); BASOPHILS % (AUTO) 2.1 % (0.0-2.0); EOSINOPHILS # (AUTO) 0.2 /CMM (0.0-0.7); EOSINOPHILS % (AUTO) 1.9 % (0.0-6.0); HEMATOCRIT 36 % (33-45); HEMOGLOBIN 11.4 g/dL (11.5-14.8); LYMPHOCYTES # (AUTO) 0.8 /CMM (0.8-4.8); LYMPHOCYTES % (AUTO) 7.3 % (20.0-44.0); MEAN CORPUSCULAR HEMOGLOBIN 20 PG (26.0-33.0); MEAN CORPUSCULAR HGB CONC 31 g/dl (31.0-36.0); MEAN CORPUSCULAR VOLUME 63 fL (82-100); MONOCYTES # (AUTO) 0.7 /CMM (0.1-1.30); MONOCYTES % (AUTO) 5.7 % (2.0-12.0); NEUTROPHILS # (AUTO) 9.5 /CMM (1.8-8.9); PLATELET COUNT (AUTO) 260 /CMM (150-450); RED BLOOD CELL COUNT(AUTO) 5.82 MIL/uL (4.0-5.2); WHITE BLOOD COUNT (AUTO) 11.4 K/uL (4.3-11.0)
[2017-07-09 12:24] LABS: CALCIUM, SERUM 8.3 mg/dL (8.5-10.1); CREATININE 0.8 mg/dL (0.6-1.3); POTASSIUM 4.1 mmol/L (3.5-5.1)
--- NOTE | 2017-07-09 12:28 | NUR ---
CALLED (SURGEON), LEFT MESSAGE ON VOICEMAIL
[2017-07-09 12:31] LABS: ALBUMIN 3.8 g/dL (3.4-5.0); BILIRUBIN,DIRECT 0.2 mg/dL (0.0-0.2); BILIRUBIN,TOTAL 0.9 mg/dL (0.2-1.0); TOTAL PROTEIN, SERUM 7.1 g/dL (6.4-8.2)
[2017-07-09 13:01] LABS: BAND % (MANUAL) 1 % (0.0-5.0); EOSINOPHILS % (MANUAL) 1 % (0-4); LYMPHOCYTES % (MANUAL) 6 % (16-48); MONOCYTES % (MANUAL) 5 % (0-11.0); NEUTROPHILS % (MANUAL) 87 (42-76)
--- NOTE | 2017-07-09 13:04 | NUR ---
PT TO RADIOLOGY FOR ABDOMINAL CT SCAN VIA WHEELCHAIR.
--- NOTE | 2017-07-09 13:35 | NUR ---
PT C/O NAUSEA POST SECIND MORPHINE. DR WHITE AWARE. ZOFRAN 4MG GIVEN IVP PER ERMD VERBAL ORDER.
--- NOTE | 2017-07-09 13:51 | NUR ---
CALLED , TRANSFERRED CALL TO
--- NOTE | 2017-07-09 14:13 | NUR ---
IAN PAGED, DR.SAM Beauchamp ASW SPECIALIST
[2017-07-09] MEDS ORDERED: DEXL60CA3 PO (14:18)
--- NOTE | 2017-07-09 14:20 | NUR ---
CALLED NURSING SUP. FOR MS BED
--- NOTE | 2017-07-09 14:50 | NUR ---
REPORT GIVEN TO LUÍS. PT AWAITING TRANSFER TO FLOOR.
--- NOTE | 2017-07-09 15:05 | NUR ---
MS RN NOTES ADMITTED THIS PATIENT, ABDOMINAL PAIN BY DR. MARIYA PEÑA. AO X 4, ON RA NOT IN ANY DISTRESS, C/O 6/10 ABDOMINAL PAIN, WAS GIVEN 4 MG MORPHINE SULFATE AT THE ER EARLIER. PER PT SHE IS OKAY AND PAIN IS TOLERABLE. AMBULATORY, NO SKIN ISSUES. IV ACCESS TO RT AC G20 FLUSHES WELL, SITE CLEAR. AMBULATORY. UNIT ORIENTATION DONE AND USE OF CALL LIGHT, SAFETY MEASURES IN PLACE. BED LOW LOCKED, WILL CONT TO MONITOR.
[2017-07-09 15:10] VITALS: BP 110/82
[2017-07-09 15:30] VITALS: BP 99/65
--- NOTE | 2017-07-09 15:30 | NUR ---
MS RN NOTES DR. MERAZ AT BEDSIDE.
[2017-07-09 16:00] VITALS: BP 110/87
--- NOTE | 2017-07-09 16:34 | NUR ---
MS RN NOTES DR. DIETRICH AT BEDSIDE. FOR TRIGGER POINT INJECTION RIGHT LATERAL ABDOMINAL WALL. CONSENT SIGNED.
[2017-07-09 18:00] VITALS: BP 110/87
--- NOTE | 2017-07-09 18:31 | NUR ---
MS RN NOTES PATIENT RESTING IN BED. ALERT, AWAKE ORIENTED X 4, FAMILY AT BEDSIDE. NOT IN ANY DISTRESS ON ROOM AIR. TOLERABLE PAIN AT THIS TIME. IVF INFUSING WELL RT AC, SITE CLEAR. NPO POST MIDNIGHT. FOR EGD AND TRIGGER POINT INJECTION RIGHT LATERAL ABDOMINAL WALL, CONSENTS SIGNED. ALL NEEDS MET, SAFETY MEASURES IN PLACE. CALL LIGHT WITHIN REACH. WILL ENDORSE TO NEXT SHIFT FOR PEDRO.
[2017-07-09 20:00] VITALS: BP 95/56
--- NOTE | 2017-07-09 20:00 | NUR ---
RN NOTES RECEIVED PATIENT IN BED, ALERT AND ORIENTED X4, CALM, NO SOB, NO RESPIRATORY DISTRESS, TOLERATING ROOM AIR, COMPLAINING OF PAIN TO LEFT SIDE OF ABDOMEN OF 9/10. RIGHT FOREARM PERIPHERAL LINE IS PATENT AND INFUSING WELL WITH NS AT 75 CC/HR. CONTINENT OF BOWEL AND BLADDER. FAMILY VERY INVOLVED WITH CARE. NEEDS ATTENDED, CALL LIGHT WITHIN REACH. FAMILY MEMBERS AT THE BEDSIDE.
--- NOTE | 2017-07-09 21:54 | NUR ---
RN NOTES PATIENT TRANSFERRED TO ROOM 319
--- NOTE | 2017-07-09 21:58 | NUR ---
RN NOTES PATIENT COMPLAINING OF PRESSURE TO SINUS AREAS. NOTIFIED DR. STEPHANY MD CREDIT REPORT CHECKER, NEW ORDER OF CLARITIN Q24 HRS AND TYLENOL 650 MG PO Q6HRS PRN, ORDER NOTED AND CARRIED OUT.
--- NOTE | 2017-07-09 22:11 | NUR ---
RN NOTES CHANGED CLARITIN 24 HRS TO LORATADINE 10 MG QD PRN
--- NOTE | 2017-07-09 22:45 | NUR ---
RN NOTES COMPLAINING OF PAIN OF 8/10 TO LEFT SIDE OF ABDOMEN, GIVEN MORPHINE AND ZOFRAN, VSS, WILL CONTINUE TO MONITOR
--- NOTE | 2017-07-10 01:26 | NUR ---
RN NOTES GIVEN TYLENOL 650 MG FOR TOOTHACHE OF 3/10 PAIN AND CLARITIN FOR CONGESTION
[2017-07-10 05:49] LABS: BASOPHILS % (AUTO) 0.6 % (0.0-2.0); EOSINOPHILS # (AUTO) 0.2 /CMM (0.0-0.7); EOSINOPHILS % (AUTO) 5.8 % (0.0-6.0); HEMATOCRIT 28 % (33-45); HEMOGLOBIN 8.7 g/dL (11.5-14.8); LYMPHOCYTES % (AUTO) 22.5 % (20.0-44.0); MEAN CORPUSCULAR HEMOGLOBIN 20 PG (26.0-33.0); MEAN CORPUSCULAR HGB CONC 32 g/dl (31.0-36.0); MEAN CORPUSCULAR VOLUME 62 fL (82-100); MONOCYTES # (AUTO) 0.4 /CMM (0.1-1.30); MONOCYTES % (AUTO) 9.5 % (2.0-12.0); NEUTROPHILS # (AUTO) 2.6 /CMM (1.8-8.9); NEUTROPHILS % (AUTO) 61.6 % (43.0-81.0); PLATELET COUNT (AUTO) 161 /CMM (150-450); RDW COEFFICIENT OF VARIATION 14.2 (11.5-15.0); RED BLOOD CELL COUNT(AUTO) 4.43 MIL/uL (4.0-5.2); WHITE BLOOD COUNT (AUTO) 4.3 K/uL (4.3-11.0)
[2017-07-10 06:08] LABS: CALCIUM, SERUM 7.7 mg/dL (8.5-10.1); CREATININE 0.6 mg/dL (0.6-1.3); MAGNESIUM 1.8 mg/dL (1.8-2.4)
[2017-07-10 06:16] LABS: INR 1.03 (0.87-1.13)
--- NOTE | 2017-07-10 06:42 | NUR ---
RN NOTES PATIENT IN BED, ALERT AND AWAKE, COMPLAINED OF PAIN TO ABDOMINAL AREA AND GIVEN MORPHINE 2MG IVP PRN DURING SHIFT AND ZOFRAN FOR NAUSEA, NPO SINCE MIDNIGHT, VOIDING WELL, NO BM REPORTED, COMPLIANT WITH DIET RESTRICTION. ALL DUE MEDICATIONS GIVEN, CALL LIGHT WITHIN REACH.
[2017-07-10 08:00] VITALS: BP 93/58
--- NOTE | 2017-07-10 08:00 | NUR ---
MED SURGE RN: INITIAL NOTE RECEIVED PT A/O X4. ON ROOM AIR SATING AT 97%. PT NPO SINCE MIDNIGHT FOR EDG AND 2 POSSIBLE BIOPSY AT 10AM. CONSENT SIGNED. PAIN MANAGEMENT PROVIDED. NO DISTRESS. NO SOB. NO N/V NOTED. RAC #20 RUNNING NS AT 100ML/HR. RESTING COMFORTABLY IN BED. CALL LIGHT WITHIN REACH.
[2017-07-10 10:07] LABS: EOSINOPHILS # (AUTO) 0.2 /CMM (0.0-0.7); EOSINOPHILS % (AUTO) 6.3 % (0.0-6.0); HEMATOCRIT 28 % (33-45); HEMOGLOBIN 8.8 g/dL (11.5-14.8); LYMPHOCYTES # (AUTO) 0.8 /CMM (0.8-4.8); LYMPHOCYTES % (AUTO) 19.3 % (20.0-44.0); MEAN CORPUSCULAR HEMOGLOBIN 20 PG (26.0-33.0); MEAN CORPUSCULAR HGB CONC 31 g/dl (31.0-36.0); MEAN CORPUSCULAR VOLUME 62 fL (82-100); MONOCYTES # (AUTO) 0.4 /CMM (0.1-1.30); MONOCYTES % (AUTO) 9.4 % (2.0-12.0); NEUTROPHILS # (AUTO) 2.5 /CMM (1.8-8.9); PLATELET COUNT (AUTO) 164 /CMM (150-450); RDW COEFFICIENT OF VARIATION 14.1 (11.5-15.0); RED BLOOD CELL COUNT(AUTO) 4.51 MIL/uL (4.0-5.2); WHITE BLOOD COUNT (AUTO) 3.9 K/uL (4.3-11.0)
--- NOTE | 2017-07-10 10:35 | NUR ---
OR NURSE TRANSPORTED PT FOR EDG PROCEDURE WITH POSSIBLE BIOPSY. PT STABLE. REMAINED NPO SINCE MIDNIGHT.
[2017-07-10 11:01] LABS: EOSINOPHILS % (MANUAL) 4 % (0-4); LYMPHOCYTES % (MANUAL) 22 % (16-48); MONOCYTES % (MANUAL) 9 % (0-11.0); NEUTROPHILS % (MANUAL) 65 (42-76)
--- NOTE | 2017-07-10 12:00 | NUR ---
PT ARRIVED FROM [facility]. S/P EGD BY DR DIETRICH WITH STABLE V/S.BP 108/61 HR 81 O2 SAT 99% RA T 98.6
--- NOTE | 2017-07-10 12:09 | NUR ---
PT ALERT AND ORIENTED X4.WANTING TO GO HOME TO SEE HER CHILDREN.EXPLAINED TO PT THAT WE WILL WAIT FOR DR DIETRICH TO CLEAR HER FOR DISCHARGE AND CHECK WITH THE HOSPITALIST TO SEE HER WELL.PT DENIES PAIN OR DISTRESS.ON CLEAR LIQUIDS.WILL MONITOR.CALL LIGHT PLACED WITHIN REACH.
--- NOTE | 2017-07-10 13:56 | NUR ---
DISCHARGE INSTRUCTIONS,FOLLOW UP INSTRUCTIONS AND PRESCRIPTIONS GIVEN TO THE PT.IV H/L REMOVED.DISCHARGED PT HOME WITH STABLE V/S VIA PRIVATE CAR ACCOMPANIED BY HER SISTER.
== END 2017-07-10 14:00 | disposition home or self-care (01) | DRG 761 ==
LOC: ER 11:24 → MED 14:48
PROC: 0DB68ZX Excision of Stomach, Via Natural or Artificial Opening Endoscopic, Diagnostic (ICD-10-PCS; 2017-07-10)
PROC: 3E0G8GC Introduction of Other Therapeutic Substance into Upper GI, Via Natural or Artificial Opening Endoscopic (ICD-10-PCS; 2017-07-10)
PROC: 0D758ZZ Dilation of Esophagus, Via Natural or Artificial Opening Endoscopic (ICD-10-PCS; principal; 2017-07-10 10:00)
PROC: 0DB98ZX Excision of Duodenum, Via Natural or Artificial Opening Endoscopic, Diagnostic (ICD-10-PCS; 2017-07-10 10:00)
DX: N83.202 Unspecified ovarian cyst, left side (principal); K22.2 Esophageal obstruction; K22.70 Barrett's esophagus without dysplasia; D50.9 Iron deficiency anemia, unspecified; G89.18 Other acute postprocedural pain; Z98.82 Breast implant status; K58.9 Irritable bowel syndrome, unspecified; D64.9 Anemia, unspecified; K44.9 Diaphragmatic hernia without obstruction or gangrene; D56.3 Thalassemia minor
CPT/HCPCS: 36415; 80048-TC; 80076-TC; 81000-TC; 83605-TC; 83690-TC; 83735-TC; 84100-TC; 84703-TC; 85025-TC; 85610-TC; 85730-TC; 86850-TC; 87040-TC; 87081-TC; 88304-TC; 88305-TC; 88313-TC; 88342; A4606; C1726; J2270; J2405; J2704; J3490; J7030; J7050; Q9967; Z7610